=== PATIENT | male | born 1990 | race Caucasian/White ===

== ENCOUNTER 2025-02-08 12:30 | Inpatient (IN) | payer OTHER ==
[2025-02-08 13:25] VITALS: BMI 28.8
[2025-02-15] MEDS ORDERED: Bupivacaine/Epinephrine 0.25% 30 ML VIAL ONE (06:44)
[2025-02-15] MEDS ORDERED: Lidocaine 1% PF 5 ML VIAL ONE (07:28)
[2025-02-15] MEDS ORDERED: Rocuronium Bromide 10 MG/ML (10ML VIAL) ONE (07:28)
[2025-02-15] MEDS ORDERED: PROPOFOL 20 ML ONE (07:28)
[2025-02-15] MEDS ORDERED: hydrALAZINE 20 MG/ML VIAL SLOW IVP PRN (07:30)
[2025-02-15] MEDS ORDERED: Ondansetron PF 4 MG/2 ML Vial IVP PRN (07:30)
[2025-02-15] MEDS ORDERED: Ondansetron PF 4 MG/2 ML Vial ONE (08:12)
[2025-02-15] MEDS ORDERED: Non-Formulary Medication 1 EACH (Lisdexamfetamine Dimesylate [Vyvanse] 60 MG Capsule) PO SCH (09:00)
[2025-02-15] MEDS ORDERED: SUGAMMADEX SODIUM 200 MG/2 ML VIAL ONE (11:39)
[2025-02-15] MEDS: Enoxaparin 40 MG (0.4 mL) SYRINGE SC SCH (14:30)
[2025-02-15] MEDS: Famotidine/PF 20 mg/2ml Vial SLOW IVP SCH (14:30)
[2025-02-15] MEDS: Ketorolac Tromethamine 30 MG (1 mL) VIAL IVP SCH (15:11)
[2025-02-15] MEDS: D5 1/2 NS w/20 mEq KCL 1,000 ML IV SCH (15:12)
[2025-02-15] MEDS: cefOXitin Sodium 1 GM in Sodium Chloride 0.9% 100 ML IVPB SCH (15:45)
[2025-02-16] MEDS: FLU (Fluarix Triv) 25-26 (6MOS UP)/PF 45 MCG/0.5 ML Syringe IM ONE (10:07)
[2025-02-16] MEDS: PNEUMOC 20-VAL CONJ-DIP CRM/PF 0.5 ML SYRINGE IM ONE (10:07)
[2025-02-16 16:23] VITALS: BP 103/55; TEMP 99.1
[2025-02-16] MEDS: HYDROcodone/Acetaminophen 7.5/325 mg Tablet PO PRN (17:49)
== END 2025-02-16 18:04 | disposition home or self-care (01) | DRG 331 ==
LOC: CSHTELE 02-15 06:00
PROVIDERS: ADMIT Surgery; ATTEND Surgery
PROC: 0DBN4ZZ Excision of Sigmoid Colon, Percutaneous Endoscopic Approach (ICD-10-PCS; principal; 2025-02-15)
PROC: 3E03329 Introduction of Other Anti-infective into Peripheral Vein, Percutaneous Approach (ICD-10-PCS; 2025-02-15)
DX: K57.32 Diverticulitis of large intestine without perforation or abscess without bleeding (principal); I45.6 Pre-excitation syndrome; F90.9 Attention-deficit hyperactivity disorder, unspecified type; Z79.899 Other long term (current) drug therapy; Z98.890 Other specified postprocedural states; Z86.0100 Personal history of colon polyps, unspecified; Z87.891 Personal history of nicotine dependence
CPT/HCPCS: 36416; 88309; J0694; J1100; J1308; J1650; J1885; J2250; J2272; J2405; J2704; J3010; J3480; S2900

== ENCOUNTER 2025-02-19 18:54 | Emergency (ER) | payer OTHER | END 2025-02-19 21:00 | disposition home or self-care (01) | LOC: CSHERS 18:54 | DX: J10.1 Influenza due to other identified influenza virus with other respiratory manifestations (principal) | CPT/HCPCS: 87428; 99283 ==